=== PATIENT | female | born 1990 ===

== ENCOUNTER 2022-04-19 08:34 | Outpatient (CLI) | payer OTHER | END 2022-04-19 08:35 | disposition home or self-care (01) | LOC: RX STUDY 08:34 | PROVIDERS: ATTEND Obstetrics & Gynecology Reproductive Endocrinology | DX: N91.2 Amenorrhea, unspecified (principal); N93.9 Abnormal uterine and vaginal bleeding, unspecified; Q50.6 Other congenital malformations of fallopian tube and broad ligament ==

== ENCOUNTER 2024-10-17 06:18 | Day surgery (SDC) | payer OTHER ==
[2024-10-16 16:05] LABS: HEMATOCRIT 41.3 % (36.0-45.00); HEMOGLOBIN 13.6 g/dL (12.0-15.00); MEAN CELL VOLUME 86.8 fL (80.00-100.00); MEAN CORPUSCULAR HEMOGLOBIN 28.7 pg (27.00-32.0); PLATELET COUNT 294 K/uL (150-450); RED BLOOD COUNT 4.76 M/uL (4.00-6.00); RED CELL DISTRIBUTION WIDTH 12.8 % (11.5-14.5)
[2024-10-16 16:25] LABS: INR 0.99; PARTIAL THROMBOPLASTIN TIME 29.9 SECONDS (22.0-34.0); PROTHROMBIN TIME 10.8 SECONDS (9.0-11.5)
[2024-10-17] MEDS ORDERED: CEFOXITIN SODIUM 2,000 MG VIAL IV ONE (09:16)
[2024-10-17] MEDS ORDERED: POVIDONE-IODINE 118 ML BOTT TOP ONE (09:43)
== END 2024-10-17 13:50 | disposition home or self-care (01) ==
LOC: CIR.AMB 06:18
PROVIDERS: ATTEND Obstetrics & Gynecology Maternal & Fetal Medicine
DX: O02.1 Missed abortion (principal)

== ENCOUNTER 2025-01-08 06:29 | Day surgery (SDC) | payer OTHER ==
[2025-01-08] MEDS ORDERED: DIPHENHYDRAMINE HCL 50 MG/ML VIAL 1ML IV ONE (10:15)
[2025-01-08] MEDS ORDERED: MIDAZOLAM HCL 2 MG/2 ML VIAL IV ONE (10:15)
[2025-01-08] MEDS ORDERED: fentaNYL CITRATE 50 MCG/ML AMPUL IV PUSH ONE (10:15)
== END 2025-01-08 11:30 | disposition home or self-care (01) ==
LOC: AMB-ENDOS 06:29
PROVIDERS: ATTEND Colon & Rectal Surgery
DX: K62.5 Hemorrhage of anus and rectum (principal); K62.1 Rectal polyp

== ENCOUNTER 2025-02-28 09:32 | Outpatient (CLI) | payer OTHER | END 2025-02-28 09:47 | disposition home or self-care (01) | LOC: SONOGRAMA 09:32 | DX: Z31.41 Encounter for fertility testing (principal) ==